=== PATIENT | female | born 1990 | race Caucasian/White ===

== ENCOUNTER → 2020-02-29 07:26 | Outpatient (CLI) | payer OTHER | END | disposition home or self-care (01) | LOC: D.RAD 07:26 | PROVIDERS: ATTEND Nurse Practitioner Family | DX: R11.2 Nausea with vomiting, unspecified (principal) ==

== ENCOUNTER → 2020-09-18 07:07 | Outpatient (CLI) | payer OTHER | END | disposition home or self-care (01) | LOC: D.NM 07:07 | PROVIDERS: ATTEND Internal Medicine Gastroenterology | DX: R11.2 Nausea with vomiting, unspecified (principal); K21.9 Gastro-esophageal reflux disease without esophagitis; R68.81 Early satiety ==